=== PATIENT | male | born 1985 | race Caucasian/White ===

== ENCOUNTER 2021-09-27 08:00 | Outpatient (CLI) | payer BC | END 2021-09-27 23:59 | disposition home or self-care (01) | LOC: LAB 08:00 | PROVIDERS: ATTEND Physician Assistant Medical | DX: U07.1 COVID-19 (principal) ==

== ENCOUNTER 2022-02-13 18:34 | Outpatient (CLI) | payer BC | END 2022-02-13 23:59 | disposition home or self-care (01) | LOC: LAB.S 18:34 | PROVIDERS: ATTEND Physician Assistant | DX: R05.9 Cough, unspecified (principal) | CPT/HCPCS: 87798 ==